=== PATIENT | female | born 1970 | race Native Hawaiian/Other Pacific Islander ===

== ENCOUNTER 2017-05-17 00:48 | Emergency (ER) | payer MEDICARE, MEDICAID ==
--- NOTE | 2017-05-17 01:23 | C.PDOC ---
History Of Present Illness pt twisted her r wrist trying to catch a milk bottle 3 days ago. Complaining of worsening right wrist pain. Pt also put some cream and had the wrist wrapped for 3 days. Now with a rash on r wrist. decreased range of motion due to pain. Able to flex and extend all fingers Time Seen by Provider: 05/17/17 01:22 Chief Complaint (Nursing): Finger,Hand,&Wrist History Per: Patient History/Exam Limitations: no limitations Onset/Duration Of Symptoms: Days (3) Current Symptoms Are (Timing): Worse Quality: Sharp, Burning Severity: Moderate Pain Scale Rating Of: 5 Exacerbating Factor(s): Movement Recent travel outside of the [place]: No Additional History Per: Patient Past Medical History Reviewed: Historical Data, Nursing Documentation, Vital Signs Vital Signs: Last Vital Signs Temp 98.4 F 05/17/17 00:54 Pulse 83 05/17/17 00:54 Resp 16 05/17/17 00:54 BP 160/76 H 05/17/17 00:54 Pulse Ox 100 05/17/17 01:31 - Medical History PMH: HTN Surgical History: Cholecystectomy Family History: States: No Known Family Hx - Social History Hx Alcohol Use: No Hx Substance Use: No - Immunization History Hx Influenza Vaccination: Yes Review Of Systems Constitutional: Negative for: Fever, Chills Skin: Positive for: Rash (r wrist). Negative for: Lesions, Bruising Neurological: Negative for: Weakness Psych: Negative for: Anxiety Physical Exam - Physical Exam Appears: Non-toxic Skin: Warm, Dry, Rash, Other (vesicular rash r wrist) Extremity: Tenderness (r wrist), Capillary Refill (<2 sec), Swelling (r wrist) Extremity: Right: Bony Point Tenderness (wrist) Pulses: Right Brachial: Normal, Left Radial: Normal Neurological/Psych: Oriented x3, Normal Speech, Normal Cognition ED Course And Treatment O2 Sat by Pulse Oximetry: 100 Medical Decision Making Medical Decision Making: Upon provider reevaluation patient is feeling better, is medically stable, and requires no further treatment in the ED at this time. Patient will be discharged home with Rx for tramadol . Counseling was provided and all questions were answered regarding diagnosis and need for follow up with the referred clinic. There is agreement to discharge plan. Return if symptoms persist or worsen. Disposition Counseled Patient/Family Regarding: Studies Performed, Diagnosis, Need For Followup, Rx Given - Disposition Referrals: Mag Oakley MD [Staff Provider] - Disposition: HOME/ ROUTINE Disposition Time: :23 Condition: FAIR Prescriptions: traMADol [Ultram] 50 mg PO STAT PRN #12 tab PRN Reason: Pain, Severe (8-10) Instructions: Wrist Injury (ED), Arthralgia (ED) Forms: [employer] (Djiboutian) - Clinical Impression Clinical Impression: Wrist pain, right
--- NOTE | 2017-05-17 02:49 | CT ---
EXAM: CT Right Upper Extremity Without Intravenous Contrast CLINICAL HISTORY: 47 years old, female; Pain; Hand and wrist; Right; Additional info: Right wrist and hand TECHNIQUE: Axial computed tomography images of the right upper extremity without intravenous contrast. All CT scans at this facility use one or more dose reduction techniques, viz.: automated exposure control; ma/kV adjustment per patient size (including targeted exams where dose is matched to indication; i.e. head); or iterative reconstruction technique. Coronal and sagittal reformatted images were created and reviewed. COMPARISON: No relevant prior studies available. FINDINGS: Bones/joints: No acute fracture. No dislocation. Soft tissues: Few small calcifications along volar aspect of carpus. IMPRESSION: 1. No fracture. 2. Incidental/non-acute findings are described above.
[2017-05-17 03:55] VITALS: BP 138/87; PULSE 66; RESP 18; TEMP 97.9; O2SAT 96
== END 2017-05-17 04:25 | disposition home or self-care (01) ==
LOC: C.ER 00:48
DX: M25.531 Pain in right wrist (principal)
CPT/HCPCS: 73200; 96374; 99285; J1885